=== PATIENT | male | born 1955 | race Caucasian/White ===

== ENCOUNTER 2017-04-23 12:09 | Emergency (ER) | END 2017-04-23 16:07 | disposition home or self-care (01) | DX: S69.92XA Unspecified injury of left wrist, hand and finger(s), initial encounter (principal); W23.0XXA Caught, crushed, jammed, or pinched between moving objects, initial encounter; Y92.9 Unspecified place or not applicable | CPT/HCPCS: 29130; 73140; Z7502; Z7610 ==

== ENCOUNTER 2018-01-20 10:41 | Emergency (ER) | END 2018-01-20 12:59 | disposition home or self-care (01) ==